=== PATIENT | female | born 1935 | race Two or more races ===

== ENCOUNTER 2023-05-31 08:02 | Emergency (ER) | payer OTHER ==
[~2023-05-31] VITALS: Ht 149.9 cm; Wt 36.9 kg
[2023-05-31 08:35] VITALS: BP 111/70; PULSE 59; RESP 16; TEMP 98.1
[2023-05-31] MEDS ORDERED: ASPI-1450 PO (08:35)
[2023-05-31] MEDS ORDERED: SENN-376 PO (08:35)
[2023-05-31] MEDS ORDERED: LACT1CAP79 PO (08:35)
[2023-05-31] MEDS ORDERED: ESCI-8 PO (08:35)
[2023-05-31] MEDS ORDERED: DONE-51 PO (08:35)
[2023-05-31] MEDS ORDERED: MULT-413 PO (08:35)
[2023-05-31] MEDS ORDERED: ARIP2TAB27 PO (08:35)
[2023-05-31] MEDS ORDERED: POLY17PO47 PO (08:35)
[2023-05-31] MEDS ORDERED: CHOL25TA4 PO (08:35)
[2023-05-31] MEDS ORDERED: FAMO20 PO (08:35)
[2023-05-31 08:38] LABS: BASOPHILS % (AUTO) 0.7 % (0.0-2.0); EOSINOPHILS % (AUTO) 0.5 % (1.0-6.0); LYMPHOCYTES % (AUTO) 16.4 % (22.0-44.0); MEAN CORPUSCULAR HEMOGLOBIN 32.4 pg (26.0-34.0); MEAN CORPUSCULAR HGB CONC 34.1 G/dL (31.0-37.0); MEAN CORPUSCULAR VOLUME 95 fL (80-100); MONOCYTES # (AUTO) 0.4 K/uL (0.1-1.0); MONOCYTES % (AUTO) 7.3 % (2.0-9.0); NEUTROPHILS # (AUTO) 4.5 K/uL (1.8-7.7); NEUTROPHILS % (AUTO) 75.1 % (40.0-70.0); PLATELET COUNT (AUTO) 303 K/uL (150-450)
[2023-05-31 08:55] LABS: TROPONIN I-HIGH SENSITIVITY 5 ng/L (<51)
[2023-05-31 08:57] LABS: B-TYPE NATRIURETIC PEPTIDE 52 pg/mL (0-100)
[2023-05-31 09:06] LABS: ANION GAP 9 mmol/L (8-16); CALCIUM, TOTAL 9.8 mg/dL (8.8-10.5); CARBON DIOXIDE 28 mmol/L (22-29); CHLORIDE 101 mmol/L (98-107); CREATININE 0.82 mg/dL (0.60-1.30); GLOMERULAR FILTR. RATE CALC > 60 mL/min (>60); GLUCOSE,RANDOM 94 mg/dL (70-110); POTASSIUM 4.4 mmol/L (3.5-5.1); SODIUM SERUM 138 mmol/L (136-145); UREA NITROGEN, BLOOD 32 mg/dL (7-18)
[2023-05-31 09:12] LABS: ALANINE AMINOTRANSFERASE 29 U/L (12-78); ALBUMIN 3.5 g/dL (3.4-5.0); ALKALINE PHOSPHATASE 52 U/L (46-116); ASPARTATE AMINOTRANSFERASE 28 U/L (15-37); BILIRUBIN,TOTAL 0.6 mg/dL (0.1-1.0); CREATINE KINASE, TOTAL ONLY 34 U/L (26-192)
[2023-05-31 09:35] LABS: COVID AG,FIA SOURCE NASAL SWAB
[2023-05-31 10:05] LABS: SARS-COV2 (COVID) ANTIGEN,FIA Negative (Negative)
[2023-05-31 10:29] LABS: APPEARANCE,URINE CLEAR (CLEAR); BILIRUBIN,URINE NEGATIVE (NEGATIVE); COLOR,URINE LIGHT YELLOW (YELLOW); GLUCOSE, URINE (UA) NEGATIVE (NEGATIVE); LEUKOCYTE ESTERASE ,URINE NEGATIVE (NEGATIVE); NITRATE,URINE NEGATIVE (NEGATIVE); OCCULT BLOOD,URINE NEGATIVE (NEGATIVE); PROTEIN,URINE 30-70 mg/dL (NEGATIVE); UROBILINOGEN,URINE <=1.0 mg/dL (<=1.0)
== END 2023-05-31 10:55 | disposition short-term general hospital (02) ==
LOC: EMS 08:02
DX: R55 Syncope and collapse (principal); G30.9 Alzheimer's disease, unspecified; Z20.822 Contact with and (suspected) exposure to COVID-19
CPT/HCPCS: 71045; 80053; 81003; 82550; 83880; 84484; 85025; 93005; 99285; 36415-L1; 36415-TC